=== PATIENT | female | born 2000 | race Caucasian/White ===

== ENCOUNTER 2019-05-25 15:04 | Emergency (ER) | payer BC ==
--- NOTE | 2019-05-25 15:52 | ED ---
Abdominal Pain/Female - HPI Summary HPI Summary: This patient is a 19 year old F presenting to [facility] accompanied by mother sent from with a chief complaint of lower abdominal pain from around 0100 this morning, 05/25/19, pain was a 8/10 now 3/10, described as sometimes like stabbing or cramping. Pt reports she has never experienced similar symptoms before. Patient states symptoms have mostly resolved. Symptoms aggravated by nothing. Symptoms alleviated by nothing. Patient denies vomiting, diarrhea, fevers, vaginal discharge or bleeding, chance of , dysuria. Patient denies hx STDs. Patient is supposed to get period soon. Pt denies any MHx and SHx. - History of Current Complaint Chief Complaint: EDAbdPain Stated Complaint: LEFT SIDED ABD PAIN PER PT Time Seen by Provider: 05/25/19 15:41 Hx Obtained From: Patient Onset/Duration: Still Present Timing: Constant Severity Currently: Mild Pain Intensity: 3 Pain Scale Used: 0-10 Numeric Character: Cramping, Other: - stabbing Aggravating Factor(s): Nothing Alleviating Factor(s): Nothing Associated Signs and Symptoms: Positive: Other: - dysuria. Negative: Fever, Vaginal Bleeding, Vaginal Discharge, Nausea, Vomiting Allergies/Adverse Reactions: Allergies Allergy/AdvReac Type Severity Reaction Status Date / Time No Known Allergies Allergy Verified 05/25/19 15:11 PMH/Surg Hx/FS Hx/Imm Hx Endocrine/Hematology History: Denies: Hx Diabetes Sensory History: Reports: Hx Contacts or Glasses - glasses Opthamlomology History: Reports: Hx Contacts or Glasses - glasses - Surgical History Surgery Procedure, Year, and Place: age 1- dental work in OR with Dr. Mcghee Hx Anesthesia Reactions: No Infectious Disease History: No Infectious Disease History: Denies: Traveled Outside the [place] in Last 30 Days - Family History Known Family History: Positive: Diabetes - Social History Alcohol Use: None Hx Substance Use: No Substance Use Type: Reports: None Hx Tobacco Use: No Smoking Status (MU): Never Smoked Tobacco Review of Systems Negative: Fever Positive: Abdominal Pain. Negative: Vomiting, Diarrhea Positive: other - vaginal bleeding. Negative: dysuria, discharge All Other Systems Reviewed And Are Negative: Yes Physical Exam - Summary Physical Exam Summary: Constitutional: Well-developed, Well-nourished, Alert. (-) Distressed Skin: Warm, Dry HENT: Normocephalic; Atraumatic Eyes: Conjunctiva normal Neck: Musculoskeletal ROM normal neck. (-) JVD, (-) Stridor, (-) Nuchal rigidity Cardio: Rhythm regular, rate normal, Heart sounds normal; Intact distal pulses; Radial pulses are 2+ and symmetric. (-) Murmur Pulmonary/Chest wall: Effort normal. (-) Respiratory distress, (-) Wheezes, (-) Rales Abd: Soft, mild left lower quadrant tenderness, (-) Distension, (-) Guarding, (- ) Rebound Musculoskeletal: (-) Edema Lymph: (-) Cervical adenopathy Neuro: Alert, Oriented x3 Psych: Mood and affect Normal Triage Information Reviewed: Yes Vital Signs On Initial Exam: Initial Vitals Temp Pulse Resp BP Pulse Ox 98.8 F 74 14 128/74 95 05/25/19 15:07 05/25/19 15:07 05/25/19 15:07 05/25/19 15:07 05/25/19 15:07 Vital Signs Reviewed: Yes Diagnostics - Vital Signs Vital Signs Temp Pulse Resp BP Pulse Ox 05/25/19 15:07 98.8 F 74 14 128/74 95 - Laboratory Result Diagrams: 05/25/19 15:52 05/25/19 15:52 Lab Statement: Any lab studies that have been ordered have been reviewed, and results considered in the medical decision making process. - Ultrasound Transvaginal US Ultrasound Interpretation Completed By: Radiologist Summary of Ultrasound Findings: Per radiologist,. NEGATIVE EXAM. ED physician has reviewed this imaging report. Re-Evaluation - Re-Evaluation First Eval Change: Improved - Ultrasound negative, labs unremarkable aside from hematuria. Discussed w patient she could possibly have a small kidney stone but has normal renal function no signs of infection. Patient to return for worsening symptoms including fever, worsening of bowel pain, or if she is concerned Abdominal Pain Fem Course/Dx - Course Course Of Treatment: 19-year-old female with left lower quadrant pain for 1 day. DDx includes ovarian pathology such as cyst, less likely torsion given resolution of symptoms, no history of masses, less likely PID or TOA given no history of infectious symptoms or STDs, no vaginal discharge. Check to rule out ectopic. CBC to assess for underlying infection. Also check urinalysis, and transvaginal ultrasound. Also consider kidney stone, although patient does not have history of stones. - Diagnoses Provider Diagnoses: Left lower quadrant abdominal pain Discharge ED - Sign-Out/Discharge Documenting (check all that apply): Patient Departure - discharge Patient Received Moderate/Deep Sedation with Procedure: No - Discharge Plan Condition: Stable Disposition: HOME Patient Education Materials: Acute Abdominal Pain (ED) Referrals: Elle Su DO [Primary Care Provider] - 2 Days Additional Instructions: You were seen in the emergency department for left lower quadrant pain. Your labs were unremarkable, your ultrasound did not show any abnormalities. If any studies were not completed at the time of discharge you will be called with the relevant results. Please follow up with your primary care doctor in next 2-3 days and return to emergency department for worsening pain, fevers, pelvic pain or concerning symptoms. It was a pleasure taking care of you today. - Billing Disposition and Condition Condition: STABLE Disposition: Home - Attestation Statements Document Initiated by Sarah: Yes Documenting Scribe: Vikki Yung Provider For Whom Sarah is Documenting (Include Credential): Dr. Jarad Anderson MD Scribe Attestation: IVikki, scribed for Dr. Jarad Anderson MD on 05/25/19 at 1846. Scribe Documentation Reviewed: Yes Provider Attestation: The documentation as recorded by the Vikki mohan accurately reflects the service I personally performed and the decisions made by me, Dr. Jarad Anderson MD Status of Scribe Document: Viewed
[2019-05-25 15:59] LABS: Urine Appearance Cloudy; Urine Bacteria Absent (Absent); Urine Bilirubin Negative (Negative); Urine Blood 2+ (Negative); Urine Color Yellow; Urine Glucose Negative (Negative); Urine Ketones Negative (Negative); Urine Nitrite Negative (Negative); Urine Protein Negative (Negative); Urine Red Blood Cell 3+(>10/hpf) (Absent); Urine Specific Gravity 1.026 (1.010-1.030); Urine Squamous Epithelial Cell Present (Absent); Urine Urobilinogen Negative (Negative); Urine White Blood Cell Trace(0-5/hpf) (Absent)
[2019-05-25 16:15] LABS: ABS Basophils 0.1 10^3/ul (0-0.2); ABS Eosinophils 0.2 10^3/ul (0-0.6); ABS Lymphocytes 1.8 10^3/ul (1.0-4.8); ABS Monocytes 0.5 10^3/ul (0-0.8); ABS Neutrophils 3.5 10^3/ul (1.5-7.7); Eosinophil % 3.1 %; Hematocrit 38 % (35-47); Hemoglobin 12.6 g/dL (12.0-16.0); Lymphocyte % 29.9 %; Mean Corpuscular HGB Conc 34 g/dL (31-36); Mean Corpuscular Hemoglobin 30 pg (27-31); Mean Corpuscular Volume 90 fL (80-97); Mean Platelet Volume 7.9 fL (7.4-10.4); Platelet Count 233 10^3/uL (150-450); Red Blood Count 4.16 10^6 /uL (3.70-4.87); Red Cell Distribution Width 14 % (10-15)
[2019-05-25 16:35] LABS: Albumin/Globulin Ratio 1.5 (1-3); BUN/Creatinine Ratio 9.5 (8-20); C Reactive Protein 3.47 mg/L (<8.01); Calcium 9.3 mg/dL (8.6-10.3); EGFR African American 104.6 (>60); EGFR Non-African American 86.4 (>60); Globulin 2.7 g/dL (2-4); Total Bilirubin 0.4 mg/dL (0.2-1.0); Total Protein 6.7 g/dL (6.4-8.9)
[2019-05-25 16:40] LABS: HCG Pregnancy 0.64 mIU/mL
[2019-05-25 17:10] VITALS: BP 0/0
== END 2019-05-25 17:00 | disposition home or self-care (01) ==
LOC: ED 15:04
DX: R10.32 Left lower quadrant pain (principal); R30.0 Dysuria; N93.9 Abnormal uterine and vaginal bleeding, unspecified
CPT/HCPCS: 36415; 76830; 80053; 81003; 81015; 84702; 85025; 86140; 87086; 99282